=== PATIENT | male | born 1985 ===

== ENCOUNTER 2020-09-04 06:55 | Emergency (ER) | payer SELFPAY ==
[2020-09-04 06:58] VITALS: BP 155/89; PULSE 88; RESP 16; TEMP 36.6; O2SAT 99; BMI 26.4
--- NOTE | 2020-09-04 07:09 | ED.EYEPROB ---
HPI - Eye Problem General Chief complaint: Eye Problems Stated complaint: Eye Pain Time Seen by Provider: 09/04/20 07:08 Source: patient Mode of arrival: ambulatory Limitations: no limitations History of Present Illness HPI Narrative: Patient comes to emergency room complaining a bump in his left lower lid. Patient states it is irritated, denies any discharge. No pain with eye. No fever. patient denies injury. Noticed the bump growing 2 days ago chief complaint: eye pain Related Data Previous Rx's Medication Instructions Recorded erythromycin 0.5 inch OPHTHALMIC (EYE) TID #1 g 09/04/20 Allergies Allergy/AdvReac Type Severity Reaction Status Date / Time No Known Allergies Allergy Verified 09/04/20 06:57 Review of Systems Review of Systems: Constitutional : No Weight loss, No Fever, No Chills, No Night Sweats, No Fatigue, No Malaise ENT/Mouth : No Hearing loss, No Ear Pain, No Nasal Congestion, No Sinus Pain, No Hoarseness, No sore throat, No Rhinorrhea, No Swallowing Difficulty Eyes: complaining of red eye bump in the lower eyelid, no discharge Cardiovascular : No Chest Pain, No SOB, No Dyspnea on Exertion, No Orthopnea, No Edema, No Palpitations Respiratory : No Cough, No Sputum, No Wheezing, No Smoke Exposure, No Dyspnea Gastrointestinal : No Nausea, No Vomiting, No Diarrhea, No Constipation, No abdominal Pain, No Hematochezia, No Melena Genitourinary : no irregular bleeding, No Dysuria, No Urinary Frequency, No Hematuria, No Urinary Incontinence, No Urgency, No Flank Pain, No Urinary Flow Changes, No Hesitancy Musculoskeletal : No joint pain, No Myalgias, No Joint Swelling Skin : No Skin Lesions, No rash Neuro : No Weakness, No Numbness, No Paresthesias, No Loss of Consciousness, No Dizziness, No Headache Psych : No Anxiety/Panic, No Depression, No SI/HI/AH/VH, No Social Issues, Heme/Lymph: No Bruising, No Bleeding,No Lymphadenopathy Endocrine : No Polyuria, No Polydipsia, No Temperature Intolerance Yes all other systems are reviewed and are negative [facility] Past Medical History Medical History No known health problems Physical Exam Vital Signs: Vital Signs: Vital Signs Temp Pulse Resp BP Pulse Ox 09/04/20 06:58 97.9 F 88 16 155/89 H 99 Body Mass Index 26.4 Appearance: Alert. Oriented X3. No acute distress. Eyes: Pupils equal, round and reactive to light. stye in the lower lid left-sided medial aspect, no drainage. ENT: Pharynx normal. Neck: Normal inspection. Neck supple. No lymph nodes noted. No crepitus CVS: Normal heart rate and rhythm. Pulses normal. Normal S1 and S2 Respiratory: No respiratory distress. Breath sounds normal. No Wheezing. No rales Abdomen: Soft and nontender. No rigidity. No distention. good BS x4 Skin: Skin warm and dry. Normal skin color. Normal skin turgor. Extremities: No lower extremity edema. No lower extremity edema. No Lacerations. No Rash Neuro: Oriented X 3. No motor deficit. No sensory deficit. Moving all extermities. No slurred speech. Course Course Course Narrative: I discussed the physical exam with the patient, patient instructed to use warm compresses and erythromycin ointment. Discharge Plan Discharge Clinical Impression: Stye Patient Disposition: Home, Self-Care Instructions: Sharad (ED) Additional Instructions: Apply warm compresses to your eye 15 minutes, every 2-3 hours while your awake if the redness in your eye worsens if you have any significant drainage, anything new, please return to the emergency room. Otherwise, close follow-up with your primary care physician and your blocklayer. Prescriptions: New erythromycin 5 mg/gram (0.5 %) ointment 0.5 inch ophthalmic (eye) TID Qty: 1 RF: 0
== END 2020-09-04 07:25 | disposition home or self-care (01) ==
LOC: HO.ED 07:22
PROVIDERS: Emergency Provider Emergency Medicine
DX: H00.015 Hordeolum externum left lower eyelid (principal); H57.12 Ocular pain, left eye
CPT/HCPCS: 99283; 99284

== ENCOUNTER 2020-11-16 22:22 | Emergency (ER) | payer MEDICAID, SELFPAY ==
[2020-11-16 22:29] VITALS: BP 143/77; PULSE 81; RESP 16; TEMP 36.7; O2SAT 97; BMI 27.1
[2020-11-16] MEDS: Ibuprofen 600 MG TABLET PO (23:07)
--- NOTE | 2020-11-17 00:57 | ED.GENADULT ---
HPI - General Adult General Chief complaint: General Medical Stated complaint: FACE SWELLINT Time Seen by Provider: 11/17/20 00:44 Source: patient Mode of arrival: ambulatory Limitations: no limitations History of Present Illness HPI narrative: 35-year-old male who presents emergency department for evaluation of right-sided facial swelling. The patient states he has been having dental pain for approximately 3 days. He states pain was a constant, dull ache and was very mild. He states that this morning he woke up and had swelling on the right side of his face. He states that he had chills and fever. He denied headache, neck pain, nausea, vomiting. The patient was concerned that he had an infection of his tooth there for he came to emergency department for evaluation. Related Data Previous Rx's Medication Instructions Recorded erythromycin 0.5 inch OPHTHALMIC (EYE) TID #1 g 09/04/20 clindamycin HCl 600 mg PO Q8H 7 Days #42 cap 11/17/20 Allergies Allergy/AdvReac Type Severity Reaction Status Date / Time No Known Allergies Allergy Verified 09/04/20 06:57 Review of Systems Review of Systems: Yes all other systems are reviewed and are negative Neurologic: Reports Abnormal speech present [facility] Past Medical History [facility] Narrative: The patient has no medical problems. He denies drug use. He states that he does smoke cigarettes occasionally drinks alcohol. Medical History No known health problems Social History Social History Alcohol intake: never Smoking Status: Never smoker Advance Directives: No Physical Exam Vital Signs: Vital Signs: Last Vital Signs Temp 98.1 F 11/16/20 22:29 Pulse 81 11/16/20 22:29 Resp 16 11/16/20 22:29 BP 143/77 H 11/16/20 22:29 Pulse Ox 97 11/16/20 22:29 Body Mass Index 27.1 Const: General: cooperative Orientation/consciousness: oriented to person and oriented to place Limitations: no limitations HENMT: Head: Yes normal to inspection, Yes normocephalic and Yes atraumatic Ears: external ears normal General nose exam: Normal external nose present Face and sinus: Yes other (Right facial swelling, minimally tender, no erythema or warmth) Mouth: Normal oral and palatal mucosa present Teeth and gingiva: caries (Tooth 5, 1 severe dental caries, nontender ) Throat: Yes posterior oropharynx normal Eyes: Periorbital: periorbital findings normal Eyelids: Yes eyelids normal Conjunctivae: conjunctivae normal Sclerae: sclerae normal Corneas: corneas normal Pupils: Equal, round and reactive pupils present Direct Ophthalmoscopy: normal light reflex Neck: Neck: Yes full ROM, Yes no lymphadenopathy, Yes no meningeal signs, Yes trachea midline and Yes supple Chest: Chest palpation & inspection: normal inspection of the chest and normal palpation of entire chest wall Resp: Effort & Inspection: normal respiratory effort and able to speak in complete sentences Auscultation: clear to auscultation bilaterally Cardio: Rate: regular rate Rhythm: regular rhythm Heart sounds: S1 normal heart sound present, S2 normal heart sound present and no murmurs GI: Inspection: Yes normal to inspection Palpation (GI): Soft to palpation, nontender, no guarding, not rigid and No hepatosplenomegaly present : General: Yes no CVA tenderness Back/Spine/Pelvis: Back: no CVA tenderness Cervical Spine: normal cervical lordosis Thoracic/Lumbar Spine: thoracic and lumbar spine normal to inspection Skin: Lesions: no lesions Rashes: no rashes Wounds: no wounds Neuro: General: oriented to person, oriented to place and no meningeal signs Cranial nerves: Yes Equal, round and reactive pupils present Cognition (Neuro): normal cognition Speech: Abnormal speech present Motor exam (neuro): 5/5 motor strength present throughout Extrem: General: Yes normal to inspection and Yes full ROM Psych: Appearance: well kempt Mental Status: mental status grossly normal Speech and movement: Normal speech and movement present Affect: normal affect Attitude: cooperative Thought process: Normal thought process present Thought content: Normal thought content present Course Course Course Narrative: 35-year-old male who presents to emergency department for evaluation of 3 days of dental pain and 1 day of right-sided facial swelling. The patient has significant decay of tooth #1 and # 5 with significant decay and significant right-sided facial swelling suggesting that he has dental abscess/induration of the right side of his face secondary to the infection. The patient was given clindamycin 600 mg orally here in the emergency department. He was given prescription for clindamycin 600 mg 3 times a day for 7 days. He was advised to apply heat to the right side of his face to help increase the blood supply to the area. He will need to follow-up with his dentist within 2 days for re-evaluation. He was advised return to emergency department if symptoms get worse or if you develop any new symptoms that are concerning to him. Discharge Plan Discharge Clinical Impression: Facial swelling, Abscess, dental Patient Disposition: Home, Self-Care Instructions: Dental Abscess (ED) Additional Instructions: Your facial swelling is caused by infection of your to teeth on the right upper jaw. Take clindamycin 600 mg 3 times a day for 7 days. Apply a heating pad on low to the right side of your face for 15 minutes 4 to 6 times a day to help increase the blood flow to your face and help the healing process. Follow-up with dentist in 2 days for re-evaluation or follow up with the dental clinic at the [facility]. Please return to the emergency department if your symptoms get worse or if you develop any symptoms that are concerning to you. Prescriptions: New clindamycin HCl 300 mg capsule 600 mg PO Q8H 7 Days Qty: 42 RF: 0 No Action erythromycin 5 mg/gram (0.5 %) ointment 0.5 inch ophthalmic (eye) TID Qty: 1 RF: 0
== END 2020-11-17 01:27 | disposition home or self-care (01) ==
PROVIDERS: Emergency Provider Emergency Medicine Emergency Medical Services
DX: R22.0 Localized swelling, mass and lump, head (principal); K04.7 Periapical abscess without sinus; K08.89 Other specified disorders of teeth and supporting structures
CPT/HCPCS: 99283

== ENCOUNTER 2020-11-20 14:30 | Outpatient (REF) | payer MEDICAID, SELFPAY | END 2020-11-20 14:31 | disposition home or self-care (01) | LOC: HO.LAB 14:30 | PROVIDERS: Visit Provider Internal Medicine | DX: Z20.822 Contact with and (suspected) exposure to COVID-19 (principal) | CPT/HCPCS: 36415; C9803; U0003 ==

== ENCOUNTER 2021-03-10 13:55 | Outpatient (REF) | payer MEDICAID, SELFPAY ==
[2021-03-10 14:42] LABS: COVID-19 Test Negative (Negative)
== END 2021-03-10 13:56 | disposition home or self-care (01) ==
LOC: HO.LAB 13:55
PROVIDERS: Visit Provider Internal Medicine
DX: Z20.822 Contact with and (suspected) exposure to COVID-19 (principal)
CPT/HCPCS: 36415; 87635; C9803

== ENCOUNTER 2021-11-05 13:42 | Outpatient (REF) | payer MEDICAID, SELFPAY ==
[2021-11-05 14:04] LABS: COVID-19 Test Negative (Negative)
== END 2021-11-05 13:43 | disposition home or self-care (01) ==
LOC: HO.LAB 13:42
PROVIDERS: Visit Provider Internal Medicine
DX: Z20.822 Contact with and (suspected) exposure to COVID-19 (principal)
CPT/HCPCS: 36415; 87635; C9803

== ENCOUNTER 2022-07-20 20:32 | Emergency (ER) | payer MEDICAID, SELFPAY ==
--- NOTE | ~2022-07-20 | XR_ITS ---
EXAMINATION: XR FOOT, RIGHT CLINICAL INFORMATION: Fifth toe pain COMPARISON: None TECHNIQUE: AP, lateral, and oblique views of the right foot. FINDINGS: Bones of the midfoot are well aligned. No tarsal, metatarsal or phalangeal fracture. No significant degenerative changes. No focal soft tissue swelling. No radiopaque foreign body. No gross ankle joint effusion. XR/XR foot RT min 3V IMPRESSION: Unremarkable radiographs of the right foot.
[2022-07-20 23:28] VITALS: BP 152/77; PULSE 69; RESP 14; TEMP 36.6; O2SAT 97; BMI 28.5
--- NOTE | 2022-07-21 00:35 | ED_ITS ---
HPI - Extremity Injury (Lower) General Chief Complaint: Extremity Injury, Lower Stated Complaint: left pinky toe pain Time Seen by Provider: 07/20/22 20:52 Source: patient Mode of arrival: ambulatory Limitations: no limitations History of Present Illness HPI Narrative: Patient came as earlier he stuck his right 5th toe on a corner complaining of pain since then no other injury Related Data Previous Rx's Medication Instructions Recorded erythromycin 5 mg/gram (0.5 %) eye 0.5 inch ophthalmic (eye) TID #1 g 09/04/20 ointment clindamycin HCl 300 mg capsule 600 mg PO Q8H 7 days #42 caps 11/17/20 Allergies Allergy/AdvReac Type Severity Reaction Status Date / Time No Known Allergies Allergy Verified 09/04/20 06:57 Review of Systems Review of Systems: Yes all other systems are reviewed and are negative [facility] Past Medical History Medical History No known health problems Social History Social History Alcohol intake: never Advance Directives: No Advance Directives Information Provided: No Physical Exam Vital Signs: Vital Signs: Last Vital Signs Temp 97.8 F 07/20/22 23:28 Pulse 69 07/20/22 23:28 Resp 14 07/20/22 23:28 BP 152/77 H 07/20/22 23:28 Pulse Ox 97 07/20/22 23:28 O2 Del Method 07/20/22 23:28 BMI result Body Mass Index 28.5 Appearance: Alert. Oriented X3. No acute distress. Extremities: No lower extremity edema. Right 5th toe slightly erythematous and swollen no deformity neurovascular intact Neuro: Oriented X 3. No motor deficit. MDM - Extremity Injury (Lower) MDM Narrative Medical decision making narrative: X-ray negative for fracture barbara tape applied advised take ibuprofen for pain Discharge Plan Discharge Clinical Impression: Contusion of fifth toe of right foot Patient Disposition: Home, Self-Care Instructions: Foot Contusion (ED) Additional Instructions: No fracture was seen Apply tape as advised Ibuprofen for pain as needed Prescriptions: No Action clindamycin HCl 300 mg capsule 600 mg PO Q8H 7 Days Qty: 42 0RF erythromycin 5 mg/gram (0.5 %) ointment 0.5 inch ophthalmic (eye) TID Qty: 1 0RF Stand Alone Forms: Work/School Release
== END 2022-07-21 00:54 | disposition home or self-care (01) ==
PROVIDERS: Emergency Provider Internal Medicine
DX: M79.675 Pain in left toe(s) (principal); Z79.899 Other long term (current) drug therapy
CPT/HCPCS: 73630; 99282; 99283

== ENCOUNTER 2023-06-21 13:48 | Emergency (ER) | payer MEDICAID, SELFPAY ==
[2023-06-21 14:17] VITALS: BP 149/89; PULSE 104; RESP 18; TEMP 37.6; O2SAT 95; BMI 29.8
--- NOTE | 2023-06-21 16:38 | ED_ITS ---
HPI - General Adult General Chief complaint: General Medical Stated complaint: Fever/Sore throat/Ear pain Time Seen by Provider: 06/21/23 17:27 Source: patient Mode of arrival: ambulatory Limitations: no limitations History of Present Illness HPI narrative: 37-year-old male presents with 3 days fatigue, malaise, sore throat with radiation of pain into bilateral ears, patient reports sore throat worse with swallowing. He reports he is able to drink however not tolerating hard foods. Patient states his throat was never hurt like this before. Reports subjective fevers and chills. Denies chest pain, shortness of breath, nausea, vomiting, abdominal pain, headache, vision changes, dizziness, weakness. Related Data Previous Rx's Medication Instructions Recorded erythromycin 5 mg/gram (0.5 %) eye 0.5 inch ophthalmic (eye) TID #1 g 09/04/20 ointment clindamycin HCl 300 mg capsule 600 mg PO Q8H 7 days #42 caps 11/17/20 Magic Mouthwash 5 ml PO TID #240 mL 06/21/23 Diphen/Lido/Antacid 1:1:1 240 mL suspension amoxicillin 875 mg-potassium 1 tab PO BID 10 days #20 tabs 06/21/23 clavulanate 125 mg tablet prednisone 20 mg tablet 40 mg PO DAILY 5 days #10 tabs 06/21/23 Allergies Allergy/AdvReac Type Severity Reaction Status Date / Time No Known Allergies Allergy Verified 09/04/20 06:57 Review of Systems Review of Systems: Constitutional : No Weight loss, No Fever, No Chills, No Fatigue, No Malaise ENT/Mouth : + sore throat, No Rhinorrhea Eyes: No Eye Pain, No Swelling, No Redness Cardiovascular : No Chest Pain, No SOB, No Dyspnea on Exertion, No Orthopnea, No Edema, No Palpitations Respiratory : No Cough, No Sputum, No Wheezing Gastrointestinal : No Nausea, No Vomiting, No Diarrhea, No Constipation, No abdominal Pain, No Hematochezia, No Melena Genitourinary : No Dysuria, No Urinary Frequency, No Hematuria, Musculoskeletal : No joint pain, No Myalgias, No Joint Swelling Skin : No Skin Lesions, No rash Neuro : No Weakness, No Numbness, No Dizziness, No Headache Psych : No Anxiety/Panic, No Depression All other systems reviewed and are negative Yes all other systems are reviewed and are negative [facility] Past Medical History Attestation statement: The following information was validated with the patient. Source: old records reviewed and nursing notes reviewed Medical History No known health problems Social History Social History Alcohol intake: never Advance Directives: No Advance Directives Information Provided: No Physical Exam ED Vital Signs: Vital Signs - 24 hr 06/21/23 14:17 Temperature 99.7 F Pulse Rate 104 H Respiratory Rate 18 Blood Pressure 149/89 H Pulse Oximetry 95 Oxygen Delivery Method Room Air BMI result Body Mass Index 29.8 vss Appearance: Alert.? Oriented X3.? No acute distress.? Head: Normocephalic, atraumatic, no step-offs or deformities Eyes: Pupils equal, round and reactive to light.? ENT: Pharynx w/ erythema and mild edema b/l to both tonsils, exudates bilaterally. Uvula midline. Speaking in full sentences controlling secretions well.??External ears normal. No pain with manipulation of external ears bilaterally. No mastoid tenderness. Nomal TM and EC b/l. Neck: Normal inspection.? Neck supple.? CVS: Normal heart rate and rhythm.? Pulses normal.? Respiratory: No respiratory distress.? Breath sounds normal.? Abdomen: Soft and nontender.? Skin: Skin warm and dry.? Normal skin color.? Normal skin turgor.? Extremities: No lower extremity edema.? No calf ttp. 5/5 strength to bilateral upper and lower extremities Neuro: Oriented X 3.? No motor deficit.? No sensory deficit. CN 2-12 intact Course Course Course Narrative: This is an RME: Additional HPI, ROS, PE not included below will be deferred to primary provider.37 year old male presnts w/ sore throat X3 days. Poor PO intake. Fatigue, malise, fevers, chills. No sick contacts On exam erythematous, edematous tonsils with exudates bilaterally. Speaking in full sentences controlling secretions well. Plan at this time strep, mono, flu/COVID/RSV. Will give Decadron. Reevaluation(s) Reevaluation #1: strep + will be given decadron here and atbx will be sent to the pharmacy. Educated patient on diagnosis and treatment plan, answered all question, patient verbalizes understanding. At this time patient will be discharged home, advised to return with new or worsening symptoms. Educated on worrisome signs and symptoms and when to return. At this time I feel comfortable discharge home. Time: 17:36 Medical Decision Making Medical Decision Making [facility] Narrative: 1732 37 year old male presents for sore throat, fatigue, malaise, X 3 days Pharynx w/ erythema and mild edema b/l to both tonsils, exudates bilaterally. Uvula midline. Speaking in full sentences controlling secretions well.??External ears normal. No pain with manipulation of external ears bilaterally. No mastoid tenderness. Concerns for strep vs mono. Unlikely airway compromise, peritonsillar and retropharyngeal abscess, epiglotitis, Plan- viral swabs. Differential Diagnosis Differential Diagnoses: The differential diagnosis associated with the presentation includes Concerns for strep vs mono. Unlikely airway compromise, peritonsillar and retropharyngeal abscess, epiglotitis, Admission/Observation Consideration of admission/observation: Escalation of care including admission/observation considered unlikely Lab Data [facility] Lab Attestation statement: I reviewed the patient's lab results. Labs: Lab Results 06/21/23 06/21/23 Range/Units 16:45 16:45 Monoscreen Negative (Negative) S. pyogenes GrpA ZAKI Positive A (Negative) Prescription Management I considered prescription management with: Antibiotic Core Measures AMI core measures followed: Yes Measure exclusions: not indicated Critical Care Time Critical Care Time Critical Care Time: No Discharge Plan Discharge Clinical Impression: Acute streptococcal pharyngitis Patient Disposition: Home, Self-Care Instructions: Strep Throat (DC) Additional Instructions: Take your medications as prescribed. If you were prescribed antibiotics today, it is important that you take your medication to their entirety, do not skip any doses, do not finish them early. Follow-up with your primary care provider this week. Return to the emergency department with new or worsening symptoms. Such as fevers, chills, chest pain, shortness of breath, nausea, vomiting, dizziness, headache, vision changes, lethargy In case of emergency call 911 gargle with warm water. Prescriptions: New prednisone 20 mg tablet 40 mg PO DAILY 5 Days Qty: 10 0RF amoxicillin-pot clavulanate 875-125 mg tablet 1 tab PO BID 10 Days Qty: 20 0RF Magic Mouthwash Diphen/Lido/Antacid 1:1:1 240 mL suspension 5 ml PO TID Qty: 240 0RF Rx Instructions: Lidocaine Viscous 2 % 80mL; diphenhydramine 12.5 mg/5 mL 80mL; aluminum-mag hydrox-simeth [id number]/5mL 80mL Swish and spit, do not swallow No Action clindamycin HCl 300 mg capsule 600 mg PO Q8H 7 Days Qty: 42 0RF erythromycin 5 mg/gram (0.5 %) ointment 0.5 inch ophthalmic (eye) TID Qty: 1 0RF Referrals: Physician,None [Primary Care Provider] - 2 days Stand Alone Forms: Work/School Release
[2023-06-21 16:58] LABS: IDNOW Serial# 08D9AD1C; Strep A Nucleic Acid Positive (Negative)
[2023-06-21 17:09] LABS: Monotest Negative (Negative)
[2023-06-21 17:29] LABS: Influenza A PCR NEGATIVE (Negative); Influenza B PCR NEGATIVE (Negative); Resp Syncy Virus RNA Qual PCR NEGATIVE (Negative); SARS COV2 PCR INHOUSE NEGATIVE (Negative)
[2023-06-21] MEDS: dexAMETHasone sod phosphate 10 MG/ML VIAL IVPUSH (17:38)
== END 2023-06-21 17:44 | disposition home or self-care (01) ==
PROVIDERS: Physician Assistant; Emergency Provider Student in an Organized Health Care Education/Training Program
DX: J02.0 Streptococcal pharyngitis (principal); Z20.822 Contact with and (suspected) exposure to COVID-19; Z20.828 Contact with and (suspected) exposure to other viral communicable diseases
CPT/HCPCS: 0241U; 36415; 86308; 87651; 99282; 99283; J1100